=== PATIENT | female | born 2000 | race Caucasian/White ===

== ENCOUNTER 2022-02-15 18:39 | Emergency (ER) | payer OTHER ==
[~2022-02-15] VITALS: Ht 172.7 cm; Wt 122.5 kg
[2022-02-15] MEDS ORDERED: IBU800 MG PO (20:07)
== END 2022-02-15 20:18 | disposition home or self-care (01) ==
LOC: ED 18:39
DX: S39.012A Strain of muscle, fascia and tendon of lower back, initial encounter (principal); R11.0 Nausea; E11.9 Type 2 diabetes mellitus without complications; X58.XXXA Exposure to other specified factors, initial encounter
CPT/HCPCS: 36415; 80053; 81001; 84703; 85025; A9270

== ENCOUNTER 2022-03-30 21:24 | Emergency (ER) | payer OTHER ==
[~2022-03-30] VITALS: Ht 172.7 cm; Wt 122.5 kg
[~2022-03-30 21:24] MED LIST: IBU800 MG PO
== END 2022-03-30 23:59 | disposition home or self-care (01) ==
LOC: ED 21:24
DX: H66.91 Otitis media, unspecified, right ear (principal); B34.9 Viral infection, unspecified; E11.9 Type 2 diabetes mellitus without complications; E66.01 Morbid (severe) obesity due to excess calories; Z20.822 Contact with and (suspected) exposure to COVID-19
CPT/HCPCS: 71045; 87502; U0003